=== PATIENT | male | born 1975 | race American Indian/Alaskan Native ===

== ENCOUNTER 2021-09-21 14:10 | Observation (INO) | payer BC ==
--- NOTE | 2021-09-21 14:56 | Emergency Department Report ---
HPI - General Chief Complaint: Neuro Symptoms/Deficit Time Seen by Provider: 09/21/21 14:28 - HPI HPI: MSE 5 The patient is a 46-year-old male present with a chief complaint of left-sided numbness. Patient states for the past 1 to 2 weeks he has had intermittent numbness of his left side. The patient states 3 days ago while in the shower he again developed left-sided numbness and had a syncopal episode. The patient states he also noticed slurred speech at the time however it improved after 2 days. Patient now complains of numbness in his left upper extremity, left trunk and left lower extremity. Patient denies chest pain, shortness of breath or fever. ED Past Medical Hx - Past Medical History Hx GERD: Yes Additional medical history: Hypercholesterolemia - Surgical History Additional Surgical History: Herniorrhaphy x3 - Family History Family history: no significant - Social History Smoking Status: Current Every Day Smoker (1/2 pack/day) Substance Use Type: Alcohol (Occasional), Marijuana (H/O) ED Review of Systems ROS: Stated complaint: NUMBNESS TO LEFT SIDE/PAIN ON RIGHT RIBS. Other details as noted in HPI Constitutional: denies: fever Eyes: denies: eye pain ENT: denies: throat pain Respiratory: no symptoms reported Cardiovascular: denies: chest pain Endocrine: no symptoms reported Gastrointestinal: denies: abdominal pain Genitourinary: denies: dysuria Musculoskeletal: myalgia Neurological: paresthesias, other (Dysarthria) Physical Exam - Physical Exam Vital Signs: Vital Signs 09/21/21 14:14 Temperature 98.5 F Pulse Rate 94 H Respiratory 16 Rate Blood Pressure 133/96 [Right] O2 Sat by Pulse 99 Oximetry Physical Exam: GENERAL: The patient is well-developed well-nourished male lying on stretcher not appearing to be in acute distress. [] HEENT: Normocephalic. Atraumatic. Extraocular motions are intact. Patient has moist mucous membranes. NECK: Supple. Trachea midline CHEST/LUNGS: Clear to auscultation. There is no respiratory distress noted. HEART/CARDIOVASCULAR: Regular. There is no tachycardia. There is no gallop rub or murmur. ABDOMEN: Abdomen is soft, nontender. Patient has normal bowel sounds. There is no abdominal distention. SKIN: There is no rash. There is no edema. There is no diaphoresis. NEURO: The patient is awake, alert, and oriented. The patient is cooperative. The patient has no focal neurologic deficits. The patient has normal speech. Cranial nerves II through XII grossly intact. Patient states he has equal sensation to light touch to the face, upper extremities and lower extremities bilaterally however he says the left side still feels numb. Patient able to hold the right lower extremity off the bed at 30 degree angle for 5-second count without drift. The patient is able to hold his left lower extremity at 30 degrees for 5-second count however it initially drifts but does not touch the bed and the patient recuperates and brings the left foot up to my hand. NIHSS= 2 MUSCULOSKELETAL: There is no evidence of acute injury. ED Course Vital Signs 09/21/21 14:14 Temperature 98.5 F Pulse Rate 94 H Respiratory 16 Rate Blood Pressure 133/96 [Right] O2 Sat by Pulse 99 Oximetry ED Medical Decision Making - Lab Data Result diagrams: 09/21/21 14:59 09/21/21 14:59 Laboratory Tests 09/21/21 09/21/21 09/21/21 14:59 14:59 14:59 WBC 7.5 RBC 5.01 Hgb 15.0 Hct 46.1 H MCV 92 MCH 30 MCHC 33 RDW 13.1 L Plt Count 283 Lymph % (Auto) 25.8 [place] % (Auto) 8.3 H Eos % (Auto) 5.4 H Baso % (Auto) 0.6 Lymph # (Auto) 1.9 [place] # (Auto) 0.6 Eos # (Auto) 0.4 Baso # (Auto) 0.0 Seg Neutrophils % 59.9 Seg Neutrophils # 4.5 PT 13.0 INR 0.88 APTT 26.1 Thrombin Time 17.2 Sodium 139 Potassium 4.0 Chloride 102.3 Carbon Dioxide 24 Anion Gap 17 BUN 12 Creatinine 1.0 Estimated GFR > 60 BUN/Creatinine Ratio 12 Glucose 115 H Calcium 9.4 - EKG Data -: EKG Interpreted by Me EKG shows normal: sinus rhythm Rate: normal - Radiology Data Radiology results: report reviewed (Chest x-ray with right rib series, CT head, CT cervical), image reviewed (Chest x-ray with right rib series, CT head, CT cervical spine) interpreted by me: Chest x-ray with right rib series-no pneumothorax. No acute fracture seen [facility] [address] [place] [address] XRay Report Signed Patient: SANDRA JUAN MR#: [id number] : 1975 Acct:[id number] Age/Sex: 46 / M ADM Date: 09/21/21 Loc: ED Attending Dr: Radhika ibarra Physician: PENELOPE PIEREC MD Date of Service: 09/21/21 Procedure(s): XR ribs UNI w PA Chest 3+V RT Accession Number(s): [id number] cc: PENELOPE PIERCE MD Fluoro Time In Minutes: RIGHT RIBS 6 VIEWS INDICATION / CLINICAL INFORMATION: Right rib pain after fall onto tub. COMPARISON: None available. FINDINGS: RIBS: No acute, displaced fracture or other acute abnormality. LUNGS: No acute findings. No pneumothorax. Signer Name: Trent Marie DO Signed: 09/21/2021 3:32 PM Workstation Name: [id number] Transcribed By: GEORGI Dictated By: TRENT MARIE DO Electronically Authenticated By: TRENT MARIE DO Signed Date/Time: 09/21/21 153 DD/ 153 TD/TT: Print Cancel - Differential Diagnosis TIAs, CVA Critical care attestation.: If time is entered above; I have spent that time in minutes in the direct care of this critically ill patient, excluding procedure time. ED Disposition Clinical Impression: Neurological deficit, transient Disposition: ADMITTED INPATIENT Is pt being admited?: Yes Does the pt Need Aspirin: Yes Condition: Stable Referrals: PRIMARY CARE, [Primary Care Provider] - 3-5 Days Time of Disposition: 17:45 (Hospitalist called (Dr. Sotomayor))
[2021-09-21 15:11] LABS: Basophils % (Auto) 0.6 % (0.0-1.8); Eosinophils # (Auto) 0.4 K/mm3 (0.0-0.4); Eosinophils % (Auto) 5.4 % (0.0-4.3); Hematocrit 46.1 % (35.5-45.6); Lymphocytes # (Auto) 1.9 K/mm3 (1.2-5.4); Lymphocytes % (Auto) 25.8 % (13.4-35.0); Mean Corpuscular HGB Conc 33 % (32-34); Mean Corpuscular Volume 92 fl (84-94); Monocytes # (Auto) 0.6 K/mm3 (0.0-0.8); Monocytes % (Auto) 8.3 % (0.0-7.3); Platelet Count 283 K/mm3 (140-440); Red Blood Count 5.01 M/mm3 (3.65-5.03); Red Cell Distribution Width 13.1 % (13.2-15.2)
[2021-09-21 15:22] LABS: INR 0.88 (0.87-1.13)
[2021-09-21 15:23] LABS: Partial Thromboplastin Time 26.1 Sec. (24.2-36.6)
[2021-09-21 15:30] LABS: BUN/Creatinine Ratio 12; Blood Urea Nitrogen 12 mg/dL (9-20); Calcium 9.4 mg/dL (8.4-10.2); Hemolysis Index 48
[2021-09-21 15:35] LABS: Thrombin Time 17.2 Sec. (15.1-19.6)
--- NOTE | 2021-09-21 15:37 | XRay Report ---
RIGHT RIBS 6 VIEWS INDICATION / CLINICAL INFORMATION: Right rib pain after fall onto tub. COMPARISON: None available. FINDINGS: RIBS: No acute, displaced fracture or other acute abnormality. LUNGS: No acute findings. No pneumothorax. Signer Name: Trent Olmos DO Signed: 09/21/2021 3:32 PM Workstation Name: [id number]
--- NOTE | 2021-09-21 17:28 | Cat Scan Report ---
CT head/brain wo con INDICATION / CLINICAL INFORMATION: 46 years Male; Left-sided numbness. TECHNIQUE: Routine CT head without contrast. All CT scans at this location are performed using CT dos e reduction for ALARA by means of automated exposure control. COMPARISON: None. FINDINGS: The brain demonstrates appropriate attenuation for age. The ventricular system is within normal limit s in size and configuration. There is no clear CT evidence of acute intracranial hemorrhage or signif icant mass effect. ORBITS: No significant abnormality of visualized orbits. SINUSES / MASTOIDS: There is mild mucosal thickening involving the visualized inferior left maxillary sinus. CRANIOCERVICAL JUNCTION: No significant abnormality. ADDITIONAL FINDINGS: None. IMPRESSION: 1. There is no CT evidence of acute intracranial process. Signer Name: Rocky Nails MD Signed: 09/21/2021 5:24 PM Workstation Name: [id number]
--- NOTE | 2021-09-21 17:32 | Cat Scan Report ---
CT cervical spine wo con INDICATION / CLINICAL INFORMATION: 46 years Male; Pain after syncopal episode. TECHNIQUE: Axial CT images of the cervical spine were obtained. Sagittal and coronal reformatted images were pr oduced. All CT scans at this location are performed using CT dose reduction for ALARA by means of aut omated exposure control. COMPARISON: None available. FINDINGS: POST-SURGICAL CHANGES: None. ALIGNMENT: There is mild reversal of the cervical lordosis without significant spondylolisthesis. VERTEBRAE: There is disc space narrowing at C5-6 and C6-7 with mild degenerative endplate changes. Th ere are milder more focal findings anteriorly at C3-4 and C4-5. There is no CT evidence of acute frac ture of the cervical spine. INTRAVERTEBRAL DISCS: The right facet and uncovertebral joint hypertrophy at C2-3 results in mild to moderate right foraminal narrowing. The central disc bulge at C3-4 appears to minimally encroach on t he ventral cord. There is mild to moderate foraminal narrowing bilaterally. There is also mild to moderate left foraminal narrowing at C4-5. The spondylosis at C5-6 minimally en croaches on the ventral cord and effaces right lateral recess. There appears to be marked right and m oderate left foraminal narrowing. The spondylosis at C6-7 effaces the ventral subarachnoid space and lateral recesses, greater on the l eft. Additionally, there is marked right and moderate to marked left foraminal narrowing. There is mi ld to moderate foraminal narrowing on the right at C7-T1. PARASPINAL SOFT TISSUES: No prevertebral soft tissue fluid collections are identified. ADDITIONAL FINDINGS: None. IMPRESSION: 1. There is no CT evidence of acute fracture involving the cervical spine. 2. There are multilevel degenerative changes as detailed above. Signer Name: Rocky Nails MD Signed: 09/21/2021 5:28 PM Workstation Name: [id number]
[2021-09-21] MEDS ORDERED: ASPIRIN 325 MG TAB PO ONE (17:45)
[2021-09-21] MEDS ORDERED: METOCLOPRAMIDE 10 MG/2 ML INJ IV PRN (22:42)
[2021-09-21] MEDS ORDERED: ACETAMINOPHEN 325 MG TAB PO PRN (22:42)
[2021-09-21] MEDS ORDERED: ONDANSETRON 4 MG/2 ML INJ IV PRN (22:42)
[2021-09-21] MEDS ORDERED: SODIUM CHLORIDE 0.9% 1000 ML 1,000 ML IV SCH (22:45)
--- NOTE | 2021-09-21 23:00 | History and Physical Report ---
History of Present Illness Date of examination: 09/21/21 Date of admission: 09/21/21 17:49 Chief complaint: Left-sided numbness History of present illness: The patient is a 46-year-old male present with a chief complaint of left-sided numbness. Patient states for the past 1 to 2 weeks he has had intermittent numbness of his left side. The patient states 3 days ago while in the shower he again developed left-sided numbness and had a syncopal episode. The patient states he also noticed slurred speech at the time however it improved after 2 days. Patient now complains of numbness in his left upper extremity, left trunk and left lower extremity. Patient denies chest pain, shortness of breath or fever. - Past Medical History --GERD: Yes Additional medical history: Hypercholesterolemia - Surgical History Additional Surgical History: Herniorrhaphy x3 - Family History Family history: no significant - Social History Smoking Status: Current Every Day Smoker (1/2 pack/day) Substance Use Type: Alcohol (Occasional), Marijuana (H/O) Review of Systems ROS: Stated complaint: NUMBNESS TO LEFT SIDE/PAIN ON RIGHT RIBS. Other details as noted in HPI Constitutional: denies: fever Eyes: denies: eye pain ENT: denies: throat pain Respiratory: no symptoms reported Cardiovascular: denies: chest pain Endocrine: no symptoms reported Gastrointestinal: denies: abdominal pain Genitourinary: denies: dysuria Musculoskeletal: myalgia Neurological: paresthesias, other (Dysarthria) Medications and Allergies Allergies Allergy/AdvReac Type Severity Reaction Status Date / Time No Known Allergies Allergy Unverified 09/21/21 14:16 Active Meds: Active Medications Acetaminophen (Acetaminophen 325 Mg Tab) 650 mg PO Q4H PRN PRN Reason: Pain MILD(1-3)/Fever >100.5/[place] Aspirin (Aspirin 325 Mg Tab) 325 mg PO QDAY GLADYS Atorvastatin Calcium (Atorvastatin 40 Mg Tab) 40 mg PO QHS GLADYS Famotidine (Famotidine 20 Mg/2 Ml Inj) 20 mg IV BID GLADYS Heparin Sodium (Porcine) (Heparin 5,000 Unit/1 Ml Vial) 5,000 unit SUB-Q Q12HR GLADYS Sodium Chloride (Nacl 0.9% 1000 Ml) 1,000 mls @ 100 mls/hr IV DIRECT GLADYS Metoclopramide HCl (Metoclopramide 10 Mg/2 Ml Inj) 10 mg IV Q6H PRN PRN Reason: Nausea And Vomiting Morphine Sulfate (Morphine 2 Mg/1 Ml Inj) 2 mg IV Q4H PRN PRN Reason: Pain, Moderate (4-6) Ondansetron HCl (Ondansetron 4 Mg/2 Ml Inj) 4 mg IV Q8H PRN PRN Reason: Nausea And Vomiting Sodium Chloride (Sodium Chloride 0.9% 10 Ml Flush Syringe) 10 ml IV BID GLADYS Sodium Chloride (Sodium Chloride 0.9% 10 Ml Flush Syringe) 10 ml IV PRN PRN PRN Reason: LINE FLUSH Sodium Chloride (Sodium Chloride 0.9% 10 Ml Flush Syringe) 10 ml INJ PRN PRN PRN Reason: LINE FLUSH Exam - Constitutional Vitals: Temp Pulse Resp BP Pulse Ox 98.0 F 75 28 H 119/83 97 09/21/21 18:32 09/21/21 22:30 09/21/21 22:30 09/21/21 22:30 09/21/21 22:30 General appearance: Present: no acute distress, well-nourished - EENT Eyes: Present: PERRL ENT: hearing intact, clear oral mucosa - Neck Neck: Present: supple, normal ROM - Respiratory Respiratory effort: normal Respiratory: bilateral: CTA - Cardiovascular Heart rate: 87 Rhythm: regular Heart Sounds: Present: S1 & S2. Absent: rub, click - Extremities Extremities: pulses symmetrical, No edema Peripheral Pulses: within normal limits - Abdominal General gastrointestinal: Present: soft, non-tender, non-distended, normal bowel sounds Male genitourinary: Present: normal - Integumentary Integumentary: Present: clear, warm, dry - Musculoskeletal Musculoskeletal: gait normal, strength equal bilaterally - Psychiatric Psychiatric: appropriate mood/affect, intact judgment & insight - Neurologic Neurologic: CNII-XII intact, moves all extremities, other (Complains of left- sided numbness in both left upper extremity and left lower extremity. Able to walk) Results - Labs CBC & Chem 7: 09/21/21 14:59 09/21/21 14:59 Labs: Laboratory Last Values WBC 7.5 K/mm3 (4.5-11.0) 09/21/21 14:59 RBC 5.01 M/mm3 (3.65-5.03) 09/21/21 14:59 Hgb 15.0 gm/dl (11.8-15.2) 09/21/21 14:59 Hct 46.1 % (35.5-45.6) H 09/21/21 14:59 MCV 92 fl (84-94) 09/21/21 14:59 MCH 30 pg (28-32) 09/21/21 14:59 MCHC 33 % (32-34) 09/21/21 14:59 RDW 13.1 % (13.2-15.2) L 09/21/21 14:59 Plt Count 283 K/mm3 (140-440) 09/21/21 14:59 Lymph % (Auto) 25.8 % (13.4-35.0) 09/21/21 14:59 [place] % (Auto) 8.3 % (0.0-7.3) H 09/21/21 14:59 Eos % (Auto) 5.4 % (0.0-4.3) H 09/21/21 14:59 Baso % (Auto) 0.6 % (0.0-1.8) 09/21/21 14:59 Lymph # (Auto) 1.9 K/mm3 (1.2-5.4) 09/21/21 14:59 [place] # (Auto) 0.6 K/mm3 (0.0-0.8) 09/21/21 14:59 Eos # (Auto) 0.4 K/mm3 (0.0-0.4) 09/21/21 14:59 Baso # (Auto) 0.0 K/mm3 (0.0-0.1) 09/21/21 14:59 Seg Neutrophils % 59.9 % (40.0-70.0) 09/21/21 14:59 Seg Neutrophils # 4.5 K/mm3 (1.8-7.7) 09/21/21 14:59 PT 13.0 Sec. (12.2-14.9) 09/21/21 14:59 INR 0.88 (0.87-1.13) 09/21/21 14:59 APTT 26.1 Sec. (24.2-36.6) 09/21/21 14:59 Thrombin Time 17.2 Sec. (15.1-19.6) 09/21/21 14:59 Sodium 139 mmol/L (137-145) 09/21/21 14:59 Potassium 4.0 mmol/L (3.6-5.0) 09/21/21 14:59 Chloride 102.3 mmol/L (98-107) 09/21/21 14:59 Carbon Dioxide 24 mmol/L (22-30) 09/21/21 14:59 Anion Gap 17 mmol/L 09/21/21 14:59 BUN 12 mg/dL (9-20) 09/21/21 14:59 Creatinine 1.0 mg/dL (0.8-1.3) 09/21/21 14:59 Estimated GFR > 60 ml/min 09/21/21 14:59 BUN/Creatinine Ratio 12 % 09/21/21 14:59 Glucose 115 mg/dL (75-100) H 09/21/21 14:59 Calcium 9.4 mg/dL (8.4-10.2) 09/21/21 14:59 Short CBC 09/21/21 Range/Units 14:59 WBC 7.5 (4.5-11.0) K/mm3 Hgb 15.0 (11.8-15.2) gm/dl Hct 46.1 H (35.5-45.6) % Plt Count 283 (140-440) K/mm3 BMP 09/21/21 14:59 Sodium 139 Potassium 4.0 Chloride 102.3 Carbon Dioxide 24 BUN 12 Creatinine 1.0 Glucose 115 H Calcium 9.4 - Imaging and Cardiology Imaging and Cardiology: CT cervical spine There is no CT evidence of acute fracture involving the cervical spine There are multilevel degenerative changes as detailed above Head CT No acute abnormalities Chest x-ray no No acute findings no pneumothorax Assessment and Plan Advance Directives: Yes (Full code) VTE prophylaxis?: Chemical Plan of care discussed with patient/family: Yes - Patient Problems (1) Syncope and collapse Current Visit: Yes Status: Acute Plan to address problem: Syncope work-up in the form of carotid duplex scan and echocardiogram (2) TIA (transient ischemic attack) Current Visit: Yes Status: Acute Plan to address problem: Complains of left-sided numbness. CT C-spine shows degenerative changes. Neurology consult requested. MRI if necessary. Suspect more of a functional component. (3) Hyperlipidemia Current Visit: Yes Status: Chronic Qualifiers: Hyperlipidemia type: mixed hyperlipidemia Qualified Code(s): E78.2 - Mixed hyperlipidemia Plan to address problem: On statins (4) Nicotine dependence Current Visit: Yes Status: Chronic Qualifiers: Nicotine product type: cigarettes Plan to address problem: Patient counseled about nicotine and its dangers Started on NicoDerm patch (5) Tetrahydrocannabinol (THC) dependence Current Visit: Yes Status: Chronic Plan to address problem: Patient counseled (6) DVT prophylaxis Current Visit: Yes Status: Acute Plan to address problem: On anticoagulation GI prophylaxis
[2021-09-21] MEDS: FAMOTIDINE 20 MG/2 ML INJ IV SCH (23:30)
[2021-09-21] MEDS: HEPARIN 5,000 UNIT/1 ML VIAL SUB-Q SCH (23:30)
[2021-09-21] MEDS: MORPHINE 2 MG/1 ML INJ IV PRN (23:42)
[2021-09-22] MEDS: MORPHINE 2 MG/1 ML INJ IV PRN (08:00)
--- NOTE | 2021-09-22 08:22 | Progress Note ---
Assessment and Plan Assessment and plan: History of present illness: The patient is a 46-year-old male present with a chief complaint of left-sided numbness. Patient states for the past 1 to 2 weeks he has had intermittent numbness of his left side. The patient states 3 days ago while in the shower he again developed left-sided numbness and had a syncopal episode. The patient states he also noticed slurred speech at the time however it improved after 2 days. Patient now complains of numbness in his left upper extremity, left trunk and left lower extremity. Patient denies chest pain, shortness of breath or fever. Hospital course: 09/22/2021: Neurology recommendations noted. Patient has numbness in neck/arm, likely related to numbness. Neurology concerned with cervical myelopathy, MRI cervical spine ordered. EEG is still pending. We will continue to follow. Assessment and plan: (1) Syncope and collapse Current Visit: Yes Status: Acute Plan to address problem: Syncope work-up in the form of carotid duplex scan and echocardiogram negative for acute findings (2) TIA (transient ischemic attack) Current Visit: Yes Status: Acute Plan to address problem: Complains of left-sided numbness. CT C-spine shows degenerative changes. MRI C-spine ordered by neurology Neurology consult requested. MRI brain and echo unremarkable Carotid duplex scan unremarkable EEG pending Suspect more of a functional component. (3) Hyperlipidemia Current Visit: Yes Status: Chronic Qualifiers: Hyperlipidemia type: mixed hyperlipidemia Qualified Code(s): E78.2 - Mixed hyperlipidemia Plan to address problem: On statins (4) Nicotine dependence Current Visit: Yes Status: Chronic Qualifiers: Nicotine product type: cigarettes Plan to address problem: Patient counseled about nicotine and its dangers Started on NicoDerm patch (5) Tetrahydrocannabinol (THC) dependence Current Visit: Yes Status: Chronic Plan to address problem: Patient counseled (6) DVT prophylaxis Current Visit: Yes Status: Acute Plan to address problem: On anticoagulation GI prophylaxis Hospitalist Physical - Physical exam Narrative exam: Physical Exam: VITAL SIGNS: Reviewed. GENERAL: The patient appears normally developed, Vital signs as documented. HEAD: No signs of head trauma. EYES: Pupils are equal. Extraocular motions intact. EARS: Hearing grossly intact. MOUTH: Oropharynx is normal. NECK: No adenopathy, no JVD. CHEST: Chest with clear breath sounds bilaterally. No wheezes, rales, or rhonchi. CARDIAC: Regular rate and rhythm. S1 and S2, without murmurs, gallops, or rubs. VASCULAR: No Edema. Peripheral pulses normal and equal in all extremities. ABDOMEN: Soft, non tender and non distended. No rebound or guarding, and no masses palpated. Bowel Sounds normal. MUSCULOSKELETAL: Good range of motion of all major joints. Extremities without clubbing, cyanosis or edema. NEUROLOGIC EXAM: Alert and oriented x 4. no focal sensory or strength deficits. PSYCHIATRIC: Mood normal. SKIN: detail exam as documented in skin assessment - Constitutional Vitals: Temp Pulse Resp BP Pulse Ox 97.9 F 70 18 123/73 99 09/22/21 07:45 09/22/21 07:45 09/22/21 07:45 09/22/21 07:45 09/22/21 07:45 General appearance: Present: no acute distress, well-nourished Results - Labs CBC & Chem 7: 09/21/21 14:59 09/21/21 14:59 Labs: Laboratory Last Values WBC 7.5 K/mm3 (4.5-11.0) 09/21/21 14:59 RBC 5.01 M/mm3 (3.65-5.03) 09/21/21 14:59 Hgb 15.0 gm/dl (11.8-15.2) 09/21/21 14:59 Hct 46.1 % (35.5-45.6) H 09/21/21 14:59 MCV 92 fl (84-94) 09/21/21 14:59 MCH 30 pg (28-32) 09/21/21 14:59 MCHC 33 % (32-34) 09/21/21 14:59 RDW 13.1 % (13.2-15.2) L 09/21/21 14:59 Plt Count 283 K/mm3 (140-440) 09/21/21 14:59 Lymph % (Auto) 25.8 % (13.4-35.0) 09/21/21 14:59 [place] % (Auto) 8.3 % (0.0-7.3) H 09/21/21 14:59 Eos % (Auto) 5.4 % (0.0-4.3) H 09/21/21 14:59 Baso % (Auto) 0.6 % (0.0-1.8) 09/21/21 14:59 Lymph # (Auto) 1.9 K/mm3 (1.2-5.4) 09/21/21 14:59 [place] # (Auto) 0.6 K/mm3 (0.0-0.8) 09/21/21 14:59 Eos # (Auto) 0.4 K/mm3 (0.0-0.4) 09/21/21 14:59 Baso # (Auto) 0.0 K/mm3 (0.0-0.1) 09/21/21 14:59 Seg Neutrophils % 59.9 % (40.0-70.0) 09/21/21 14:59 Seg Neutrophils # 4.5 K/mm3 (1.8-7.7) 09/21/21 14:59 PT 13.0 Sec. (12.2-14.9) 09/21/21 14:59 INR 0.88 (0.87-1.13) 09/21/21 14:59 APTT 26.1 Sec. (24.2-36.6) 09/21/21 14:59 Thrombin Time 17.2 Sec. (15.1-19.6) 09/21/21 14:59 Sodium 139 mmol/L (137-145) 09/21/21 14:59 Potassium 4.0 mmol/L (3.6-5.0) 09/21/21 14:59 Chloride 102.3 mmol/L (98-107) 09/21/21 14:59 Carbon Dioxide 24 mmol/L (22-30) 09/21/21 14:59 Anion Gap 17 mmol/L 09/21/21 14:59 BUN 12 mg/dL (9-20) 09/21/21 14:59 Creatinine 1.0 mg/dL (0.8-1.3) 09/21/21 14:59 Estimated GFR > 60 ml/min 09/21/21 14:59 BUN/Creatinine Ratio 12 % 09/21/21 14:59 Glucose 115 mg/dL (75-100) H 09/21/21 14:59 Calcium 9.4 mg/dL (8.4-10.2) 09/21/21 14:59 Active Medications - Current Medications Current Medications: Generic Name Dose Route Start Last Admin Trade Name Freq PRN Reason Stop Dose Admin Acetaminophen 650 mg 09/21/21 22:42 Acetaminophen 325 Mg Tab PO Q4H PRN Pain MILD(1-3)/Fever >100.5/[place] Aspirin 325 mg 09/22/21 10:00 Aspirin 325 Mg Tab PO QDAY [facility] Atorvastatin Calcium 40 mg 09/22/21 22:00 Atorvastatin 40 Mg Tab PO QHS GLADYS Famotidine 20 mg 09/21/21 23:00 09/21/21 23:30 Famotidine 20 Mg/2 Ml Inj IV 20 mg BID GLADYS Administration Heparin Sodium (Porcine) 5,000 unit 09/21/21 23:00 09/21/21 23:30 Heparin 5,000 Unit/1 Ml Vial SUB-Q 5,000 unit Q12HR GLADYS Administration Sodium Chloride 1,000 mls @ 100 mls/hr 09/21/21 22:45 09/22/21 06:42 Nacl 0.9% 1000 Ml IV 100 mls/hr DIRECT GLADYS Administration Metoclopramide HCl 10 mg 09/21/21 22:42 Metoclopramide 10 Mg/2 Ml Inj IV Q6H PRN Nausea And Vomiting Morphine Sulfate 2 mg 09/21/21 22:42 09/22/21 08:00 Morphine 2 Mg/1 Ml Inj IV 2 mg Q4H PRN Administration Pain, Moderate (4-6) Ondansetron HCl 4 mg 09/21/21 22:42 Ondansetron 4 Mg/2 Ml Inj IV Q8H PRN Nausea And Vomiting Sodium Chloride 10 ml 09/22/21 10:00 Sodium Chloride 0.9% 10 Ml Flush Syringe IV BID GLADYS Sodium Chloride 10 ml 09/21/21 22:42 Sodium Chloride 0.9% 10 Ml Flush Syringe IV PRN PRN LINE FLUSH
--- NOTE | 2021-09-22 09:33 | Consultation ---
History of Present Illness Consult date: 09/22/21 Reason for Consult: left side numbness intermittently History of present illness: Left-sided numbness History of present illness: The patient is a 46-year-old male present with a chief complaint of left-sided numbness from neck down Patient states for the past 1 to 2 weeks he has had intermittent numbness of his left side he is compling of left leg jerking for some time , denied facial numbness denied hx of CVA or cardiac problem The patient states 3 days ago while in the shower he again developed left-sided numbness and had a syncopal episode not recall for how long he was out , denied tongue bitttingb , he denied hx of seizure , according to him when he was 19 ys old he recall LOC with scar in his for head was told he was dehydrated. The patient states he also noticed slurred speech at the time ricardo michi it improved after 2 days!!!. Patient now complains of numbness in his left upper extremity, left trunk and left lower extremity. Patient denies chest pain, shortness of breath or fever. , denied bladder problem in ER he was started on ASA and Lipitor CT brain and MRI brain are unremarkable cervical CT is remarkable for cervical spinal stenosis more at C6-7 echo is with EF#50-55% - Past Medical History --GERD: Yes Additional medical history: Hypercholesterolemia - Surgical History Additional Surgical History: Herniorrhaphy x3 - Family History Family history: no significant - Social History Smoking Status: Current Every Day Smoker (1/2 pack/day) Substance Use Type: Alcohol (Occasional), Marijuana (H/O) Review of Systems ROS: Stated complaint: NUMBNESS TO LEFT SIDE/PAIN ON RIGHT RIBS. Other details as noted in HPI Constitutional: denies: fever Eyes: denies: eye pain ENT: denies: throat pain Respiratory: no symptoms reported Cardiovascular: denies: chest pain Endocrine: no symptoms reported Gastrointestinal: denies: abdominal pain Genitourinary: denies: dysuria Musculoskeletal: myalgia Neurological: paresthesias, other (Dysarthria) Medications and Allergies Allergies Allergy/AdvReac Type Severity Reaction Status Date / Time No Known Allergies Allergy Unverified 09/21/21 14:16 Active Meds: Active Medications Acetaminophen (Acetaminophen 325 Mg Tab) 650 mg PO Q4H PRN PRN Reason: Pain MILD(1-3)/Fever >100.5/[place] Aspirin (Aspirin 325 Mg Tab) 325 mg PO QDAY [facility] Atorvastatin Calcium (Atorvastatin 40 Mg Tab) 40 mg PO QHS [facility] Famotidine (Famotidine 20 Mg/2 Ml Inj) 20 mg IV BID [facility] Heparin Sodium (Porcine) (Heparin 5,000 Unit/1 Ml Vial) 5,000 unit SUB-Q Q12HR [facility] Sodium Chloride (Nacl 0.9% 1000 Ml) 1,000 mls @ 100 mls/hr IV DIRECT [facility] Metoclopramide HCl (Metoclopramide 10 Mg/2 Ml Inj) 10 mg IV Q6H PRN PRN Reason: Nausea And Vomiting Morphine Sulfate (Morphine 2 Mg/1 Ml Inj) 2 mg IV Q4H PRN PRN Reason: Pain, Moderate (4-6) Ondansetron HCl (Ondansetron 4 Mg/2 Ml Inj) 4 mg IV Q8H PRN PRN Reason: Nausea And Vomiting Sodium Chloride (Sodium Chloride 0.9% 10 Ml Flush Syringe) 10 ml IV BID GLAD[facility] Sodium Chloride (Sodium Chloride 0.9% 10 Ml Flush Syringe) 10 ml IV PRN PRN PRN Reason: LINE FLUSH Sodium Chloride (Sodium Chloride 0.9% 10 Ml Flush Syringe) 10 ml INJ PRN PRN PRN Reason: LINE FLUSH Medications and Allergies Allergies Allergy/AdvReac Type Severity Reaction Status Date / Time No Known Allergies Allergy Verified 09/22/21 08:37 Home Medications Medication Instructions Recorded Confirmed Last Taken Type No Known Home Medications [No 09/22/21 09/22/21 Unknown History Reported Home Medications] Active Meds: Active Medications Acetaminophen (Acetaminophen 325 Mg Tab) 650 mg PO Q4H PRN PRN Reason: Pain MILD(1-3)/Fever >100.5/[place] Aspirin (Aspirin 325 Mg Tab) 325 mg PO QDAY [facility] Atorvastatin Calcium (Atorvastatin 40 Mg Tab) 40 mg PO QHS [facility] Famotidine (Famotidine 20 Mg/2 Ml Inj) 20 mg IV BID [facility] Last Admin: 09/21/21 23:30 Dose: 20 mg Documented by: Heparin Sodium (Porcine) (Heparin 5,000 Unit/1 Ml Vial) 5,000 unit SUB-Q Q12HR [facility] Last Admin: 09/21/21 23:30 Dose: 5,000 unit Documented by: Sodium Chloride (Nacl 0.9% 1000 Ml) 1,000 mls @ 100 mls/hr IV DIRECT [facility] Last Admin: 09/22/21 06:42 Dose: 100 mls/hr Documented by: Metoclopramide HCl (Metoclopramide 10 Mg/2 Ml Inj) 10 mg IV Q6H PRN PRN Reason: Nausea And Vomiting Morphine Sulfate (Morphine 2 Mg/1 Ml Inj) 2 mg IV Q4H PRN PRN Reason: Pain, Moderate (4-6) Last Admin: 09/22/21 08:00 Dose: 2 mg Documented by: Ondansetron HCl (Ondansetron 4 Mg/2 Ml Inj) 4 mg IV Q8H PRN PRN Reason: Nausea And Vomiting Sodium Chloride (Sodium Chloride 0.9% 10 Ml Flush Syringe) 10 ml IV BID GLAD[facility] Sodium Chloride (Sodium Chloride 0.9% 10 Ml Flush Syringe) 10 ml IV PRN PRN PRN Reason: LINE FLUSH Physical Examination - Vital Signs Vital Signs: Vital Signs Temp Pulse Resp BP Pulse Ox 98.5 F 94 H 16 133/96 99 09/21/21 14:14 09/21/21 14:14 09/21/21 14:14 09/21/21 14:14 09/21/21 14:14 - Constitutional General appearance: comfortable - EENT EENT: Present: PERRL, mucous membranes moist - Respiratory Respiratory: Present: chest non-tender, lungs clear, rhonchi - Gastrointestinal Gastrointestinal: Present: normoactive bowel sounds - Integumentary Integumentary: Present: normal - Neurologic Cranial nerve examination: PERRL, EOMI, intact Speech examination: intact Sensorimotor examination: intact Detailed motor examination: grossly full strength in, other (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 Patient states for the past 1 to 2 weeks he has had intermittent numbness of his left side. The patient states 3 days ago while in the shower he again developed left-sided numbness and had a syncopal episode. The patient states he also noticed slurred speech at the time however it improved after 2 days. Patient now complains of numbness in his left upper extremity, left trunk and left lower extremity. Patient denies chest pain, shortness of breath or fever. - Patient Problems # Syncope and collapse finding is suggestive of vasovagal event !! -Syncope work-up in the form of carotid duplex scan and echocardiogram are unremarkable -Cardiac monitering -EEG is pending # brisk reflexes with findings -are suggestive of cervical Mylopathy -MRI cervical is ordered # TIA (transient ischemic attack) is very unlikley his numbness involve neck arm and leg ? slurred speech -MRI brain and echo are unremarkable CT brain is unremarkable -CT C-spine shows degenerative changes. # Hyperlipidemia -On statins # Nicotine dependence Patient counseled about nicotine and its dangers Started on NicoDerm patch # Tetrahydrocannabinol (THC) dependence Patient counseled # DVT prophylaxis On anticoagulation GI prophylaxis PLAN 1- MRI cervical spine 2- cardiac monitoring and check for orthostatic changes 3- EEG 4- seizure precaution will follow
[2021-09-22] MEDS ORDERED: ASPIRIN 325 MG TAB PO SCH (10:00)
--- NOTE | 2021-09-22 10:35 | Magnetic Resonance Report ---
MR brain wo con INDICATION / CLINICAL INFORMATION: 46 years Male; stroke, LT SIDED WEAKNESS. TECHNIQUE: Multiplanar, multisequence MR images of the brain were obtained. COMPARISON: None available. FINDINGS: BRAIN / INTRACRANIAL CONTENTS: The motion degrades the image quality. However, the brain parenchyma a ppears to demonstrate appropriate signal characteristics. The diffusion imaging is unremarkable witho ut evidence of acute infarction. The ventricular system is within normal limits in size and configura tion. No extra-axial fluid collections or significant mass effect is identified. CRANIOCERVICAL JUNCTION: No significant abnormality. 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 The int racranial ICAs grossly demonstrate appropriate signal voids. ORBITS: No significant abnormality of visualized orbits. SINUSES / MASTOIDS: There is scattered mucosal thickening within the ethmoid and frontal sinuses. The re is a 2 cm retention cyst along the inferior left maxillary sinus. ADDITIONAL FINDINGS: None. IMPRESSION: 1. The MRI of the brain is unremarkable without evidence of recent infarction or acute intracranial p rocess. 2. There is sinus inflammatory disease as described. Signer Name: Rocky Nails MD Signed: 09/22/2021 10:31 AM Workstation Name: [id number]
--- NOTE | 2021-09-22 11:28 | Vascular Lab Report ---
DUPLEX DOPPLER ULTRASOUND CAROTID, BILATERAL INDICATION / CLINICAL INFORMATION: stroke. COMPARISON: None available. FINDINGS: RIGHT CAROTID: No significant atherosclerotic plaque. - PLAQUE ESTIMATE (%): < 50% - CCA velocity: 86 cm/sec. - ICA peak systolic velocity: 85 cm/sec. - ICA/CCA PSV Ratio: Less than 2. Right Vertebral Artery: Antegrade flow. LEFT CAROTID: Minimal calcified atherosclerotic plaque. - PLAQUE ESTIMATE (%): < 50% - CCA velocity: 94 cm/sec. - ICA peak systolic velocity: 85 cm/sec. - ICA/CCA PSV Ratio: Less than 2. Left Vertebral Artery: Antegrade flow. IMPRESSION: 1. Right Internal Carotid Artery: Normal. No stenosis. 2. Left Internal Carotid Artery: Less than 50% diameter stenosis. Velocity criteria are extrapolated from diameter data as defined by the Society of Radiologists in Ul trasound Consensus Conference, Radiology 2003; 229;340-346. NO STENOSIS (NORMAL) - Plaque = none; ICA PSV < 125 cm/sec; ICA/CCA PSV Ratio < 2.0 <50% STENOSIS - Plaque < 50%; ICA PSV < 125 cm/sec; ICA/CCA PSV Ratio < 2.0 50-69% STENOSIS - Plaque > 50%; ICA PSV = 125-230 cm/sec; ICA/CCA PSV Ratio = 2.0-4.0 >70% BUT <100% STENOSIS - Plaque > 50%; ICA PSV > 230 cm/sec; ICA/CCA PSV Ratio > 4.0 NEAR OCCLUSION - Plaque = visible lumen; ICA PSV = high/low/none; ICA/CCA PSV Ratio = variable TOTAL OCCLUSION - Plaque = no lumen; ICA PSV = none; ICA/CCA PSV Ratio = N/A Scribed by: Bridget Handley RDMS, RVT Scribed: 09/22/2021 9:53 AM I have reviewed the images, agree with this report, and edited this report as needed. Signer Name: Mathew Flor MD Signed: 09/22/2021 11:23 AM Workstation Name: [id number]
[2021-09-22] MEDS: HEPARIN 5,000 UNIT/1 ML VIAL SUB-Q SCH (11:31)
[2021-09-22] MEDS: FAMOTIDINE 20 MG/2 ML INJ IV SCH (11:31)
[2021-09-22 12:03] VITALS: BP 117/80
[2021-09-22] MEDS ORDERED: LORazepam 2 MG/ML VIAL IV ONE (15:36)
--- NOTE | 2021-09-22 17:06 | Discharge Summary ---
Providers - Providers Date of Admission: 09/21/21 17:49 Attending physician: SIVA HANDY MD 09/21/21 22:42 Consult to Physician [CONS] Routine Comment: Consulting Provider: SANTANA MCDONALD Physician Instructions: Reason For Exam: Left-sided numbness 09/21/21 22:53 Occupational Therapy Evaluate and Treat [CONS] Routine Comment: Reason For Exam: Neuro deficits Physical Therapy Evaluation and Treat [CONS] Routine Comment: Reason For Exam: Neuro deficits Primary care physician: HEEL BURNISHER Hospitalization Reason for admission: numbness Condition: Stable Hospital course: History of present illness: The patient is a 46-year-old male present with a chief complaint of left-sided numbness. Patient states for the past 1 to 2 weeks he has had intermittent numbness of his left side. The patient states 3 days ago while in the shower he again developed left-sided numbness and had a syncopal episode. The patient states he also noticed slurred speech at the time however it improved after 2 days. Patient now complains of numbness in his left upper extremity, left trunk and left lower extremity. Patient denies chest pain, shortness of breath or fever. Hospital course: 09/22/2021: Neurology recommendations noted. Patient has numbness in left neck/arm, likely related to cervical disc disease. Neurology concerned with cervical myelopathy, CT obtained showed degenerative changes. Patient did tolerate MRI c spine. Advised to obtain as an outpatient. MRI brain, carotid dupplex, echo unremarkable. Will discharge home with instructions to follow up neurology outpatient. Patient advised to remain hydrated. VSS at the time of discharge. Assessment and plan: (1) Syncope and collapse Current Visit: Yes Status: Acute Plan to address problem: Syncope work-up in the form of carotid duplex scan and echocardiogram negative for acute findings (2) TIA (transient ischemic attack) Current Visit: Yes Status: Acute Plan to address problem: Complains of left-sided numbness. CT C-spine shows degenerative changes. MRI C-spine ordered by neurology Neurology consult requested. MRI brain and echo unremarkable Carotid duplex scan unremarkable EEG pending Suspect more of a functional component. (3) Hyperlipidemia Current Visit: Yes Status: Chronic Qualifiers: Hyperlipidemia type: mixed hyperlipidemia Qualified Code(s): E78.2 - Mixed hyperlipidemia Plan to address problem: On statins (4) Nicotine dependence Current Visit: Yes Status: Chronic Qualifiers: Nicotine product type: cigarettes Plan to address problem: Patient counseled about nicotine and its dangers Started on NicoDerm patch (5) Tetrahydrocannabinol (THC) dependence Current Visit: Yes Status: Chronic Plan to address problem: Patient counseled (6) DVT prophylaxis Current Visit: Yes Status: Acute Plan to address problem: On anticoagulation GI prophylaxis Disposition: HOME / SELF CARE / HOMELESS Final Discharge Diagnosis (Prints w/discharge instructions): cervical disc d isease. orthostatic hypotension. Time spent for discharge: 25 Core Measure Documentation - Palliative Care Palliative Care/ Comfort Measures: Not Applicable - Core Measures Any of the following diagnoses?: none Exam - Physical Exam Narrative exam: Physical Exam: VITAL SIGNS: Reviewed. GENERAL: The patient appears normally developed, Vital signs as documented. HEAD: No signs of head trauma. EYES: Pupils are equal. Extraocular motions intact. EARS: Hearing grossly intact. MOUTH: Oropharynx is normal. NECK: No adenopathy, no JVD. CHEST: Chest with clear breath sounds bilaterally. No wheezes, rales, or rhonchi. CARDIAC: Regular rate and rhythm. S1 and S2, without murmurs, gallops, or rubs. VASCULAR: No Edema. Peripheral pulses normal and equal in all extremities. ABDOMEN: Soft, non tender and non distended. No rebound or guarding, and no masses palpated. Bowel Sounds normal. MUSCULOSKELETAL: Good range of motion of all major joints. Extremities without clubbing, cyanosis or edema. NEUROLOGIC EXAM: Alert and oriented x 4. no focal sensory or strength deficits. PSYCHIATRIC: Mood normal. SKIN: detail exam as documented in skin assessment - Constitutional Vitals: Temp Pulse Resp BP Pulse Ox 98.2 F 69 18 117/80 99 09/22/21 11:39 09/22/21 12:00 09/22/21 11:39 09/22/21 11:39 09/22/21 11:39 Plan Follow up with: PRIMARY MD AVRIL [Primary Care Provider] - 3-5 Days
--- NOTE | 2021-09-23 12:05 | Electrocardiograph Report ---
[facility] Test Date: 2021-09-21 Test Time: 16:09:59 Pat Name: SANDRA JUAN Department: Room: A454 1 Gender: M Group Account Director: SAM : 1975 Requested By: PENELOPE PIERCE Order Number: [id number] Reading MD: Alcon Pizarro Measurements Intervals [place] Rate: 74 P: 76 WA: 178 QRS: 84 QRSD: 84 T: 53 QT: 364 QTc: 405 Interpretive Statements Sinus rhythm Probable left atrial enlargement No previous ECG available for comparison Electronically Signed On 09-23-2021 12:05:06 EST by Alcon Pizarro
== END 2021-09-22 17:57 | disposition home or self-care (01) ==
LOC: ED 14:10 → 4A 17:49
PROVIDERS: ADMIT Internal Medicine; ATTEND Internal Medicine
DX: R29.818 Other symptoms and signs involving the nervous system (principal); R55 Syncope and collapse; G45.9 Transient cerebral ischemic attack, unspecified; K21.9 Gastro-esophageal reflux disease without esophagitis; E78.5 Hyperlipidemia, unspecified; E78.00 Pure hypercholesterolemia, unspecified; F12.221 Cannabis dependence with intoxication delirium; F17.210 Nicotine dependence, cigarettes, uncomplicated; Z79.899 Other long term (current) drug therapy; Z98.890 Other specified postprocedural states; Z79.82 Long term (current) use of aspirin
CPT/HCPCS: 36415; 70450; 70551; 71101; 72125; 80048; 85025; 85610; 85670; 85730; 93005; 93306; 93880; 96361; 96372; 96374; 96375; 96376; 97162; 97165; 97535; 99285; G0378; J1644; J2270; J3490; J7030; Q0162

== ENCOUNTER 2022-04-13 11:41 | Emergency (ER) | payer SELFPAY | END 2022-04-13 12:00 | disposition left against medical advice (07) | LOC: ED 11:41 | DX: R45.4 Irritability and anger (principal); Z53.21 Procedure and treatment not carried out due to patient leaving prior to being seen by health care provider ==